=== PATIENT | male | born 1980 | race Caucasian/White ===

== ENCOUNTER 2018-08-26 22:35 | Emergency (ER) | payer OTHER ==
[2018-08-26] MEDS ORDERED: ONDANSETRON 4 MG (ODT) TAB ONE (23:35)
[2018-08-26] MEDS ORDERED: DIAZEPAM 5 MG TABLET ONE (23:38)
--- NOTE | 2018-08-27 00:23 | ER ---
Nurse's Notes [facility] Name: Van Banegas Age: 37 yrs Sex: Male : 1980 Arrival Date: 08/26/2018 Time: 22:37 Bed 3 Private MD: Diagnosis: Unspecified injury of head;Headache;Radiculopathy, cervical region Presentation: 08/26 22:50 Presenting complaint: states: pt was playing basketball and went for the ball bb tangling up with another player then falling and ended up hitting his head on the floor with a loss of consciousness. Care prior to arrival: None. Mechanism of Injury: Fall from playing basketball and colliding with another player. Trauma event details: Injury occurred in the [facility], Injury occurred: in a recreational area. Injury occurred: August 26, 2018. 22:50 Acuity: WALT 2 bb 22:50 Method Of Arrival: Ambulatory bb 22:55 Transition of care: patient was not received from another setting of care. Onset of bb symptoms was August 26, 2018. Risk Assessment: Do you want to hurt yourself or someone else? Patient reports no desire to harm self or others. Initial Sepsis Screen: Does the patient meet any 2 criteria? No. Patient's initial sepsis screen is negative. Does the patient have a suspected source of infection? No. Patient's initial sepsis screen is negative. Triage Assessment: 08/27 00:15 Pain: Complains of pain in head. mg2 Trauma Activation: Alert Physician: ED Physician; Name: Kate; Notified At: 22:50; Arrived At: 22:50 Physician: General Surgeon; Name: ; Notified At: 22:50; Arrived At: Physician: Radiology; Name: Jaime; Notified At: 22:50; Arrived At: 22:52 Physician: Respiratory; Name: ; Notified At: 22:50; Arrived At: Physician: Lab; Name: ; Notified At: 22:50; Arrived At: Historical: - Allergies: 08/26 22:56 No Known Allergies; bb - Home Meds: 22:56 None [Active]; bb - PMHx: 22:56 None; bb - PSHx: 22:56 ear surgery; bb - Immunization history: Last tetanus immunization: unknown. - Social history:: Smoking status: Patient/guardian denies using tobacco, Patient uses alcohol, occasionally. - Ebola Screening: : No symptoms or risks identified at this time. Screenin:51 Abuse screen: Denies threats or abuse. Denies injuries from another. Nutritional mg2 screening: No deficits noted. Tuberculosis screening: No symptoms or risk factors identified. Fall Risk Fall in past 12 months (25 points). Primary Survey: 22:56 NO uncontrolled hemorrhage observed. A: The patient is alert. Breathing/Chest: mg2 Respiratory pattern: regular, Respiratory effort: spontaneous, unlabored. Circulation: Skin color: pink. Disability Alert. Exposure/Environment: All clothing and personal items were removed. Forensic evidence collection is not deemed to be indicated at this time. Items placed in patient belonging bag. There is no evidence of uncontrolled external bleeding. No obvious injuries are noted at this time. 08/27 00:20 Reassessment Airway Airway Patent Breathing/Chest Respiratory pattern Regular mg2 Respiratory effort Spontaneous Unlabored. Secondary Survey: 08/26 22:56 HEENT: No deficits noted. Gastrointestinal: No deficits noted. : No deficits noted. mg2 Musculoskeletal: Circulation, motion, and sensation intact. Capillary refill < 3 seconds. Assessment: 22:52 Reassessment: patient sent to ct scan via stretcher. c-collar applied. trauma alert mg2 activated. 22:53 General: Appears in no apparent distress. comfortable, Behavior is crying. Neuro: Level mg2 of Consciousness is awake, alert, obeys commands, Oriented to person, place, time, situation. Neuro: Reports loss of consciousness. Cardiovascular: Capillary refill < 3 seconds Patient's skin is warm and dry. Respiratory: Airway is patent Respiratory effort is even, unlabored, Respiratory pattern is regular, symmetrical. GI: No signs and/or symptoms were reported involving the gastrointestinal system. : No signs and/or symptoms were reported regarding the genitourinary system. EENT: No signs and/or symptoms were reported regarding the EENT system. Derm: Skin is intact, is healthy with good turgor, Skin is pink, warm \T\ dry. normal. Musculoskeletal: Circulation, motion, and sensation intact. Capillary refill < 3 seconds. 08/27 00:17 Reassessment: Patient appears in no apparent distress at this time. Patient and/or mg2 family updated on plan of care and expected duration. Pain level reassessed. Patient is alert, oriented x 3, equal unlabored respirations, skin warm/dry/pink. 00:51 Reassessment: Patient states feeling better. mg2 Vital Signs: 08/26 22:50 BP 147 / 98; Pulse 86; Resp 16 S; Pulse Ox 96% on R/A; Weight 113.4 kg (R); Height 6 bb ft. 3 in. (190.50 cm) (R); Pain 7/10; 23:07 Temp 98.3(O); mg2 23:50 BP 137 / 87; Pulse 85; Resp 18; Pulse Ox 97% on R/A; tl2 08/27 00:50 BP 156 / 88; Pulse 97; Resp 18; Temp 98; Pulse Ox 100% on R/A; Pain 2/10; mg2 08/26 22:50 Body Mass Index 31.25 (113.40 kg, 190.50 cm) bb [place] Coma Score: 08/26 22:50 Eye Response: spontaneous(4). Verbal Response: oriented(5). Motor Response: obeys bb commands(6). Total: 15. 22:53 Eye Response: spontaneous(4). Verbal Response: oriented(5). Motor Response: obeys snw commands(6). Total: 15. 23:35 Eye Response: spontaneous(4). Verbal Response: oriented(5). Motor Response: obeys snw commands(6). Total: 15. 23:35 Eye Response: spontaneous(4). Verbal Response: oriented(5). Motor Response: obeys snw commands(6). Total: 15. 23:50 Eye Response: spontaneous(4). Verbal Response: oriented(5). Motor Response: obeys tl2 commands(6). Total: 15. Trauma Score (Adult): 22:50 Eye Response: spontaneous(1); Verbal Response: oriented(1); Motor Response: obeys bb commands(2); Systolic BP: > 89 mm Hg(4); Respiratory Rate: 10 to 29 per min(4); Aris Score: 15; Trauma Score: 12 23:50 Eye Response: spontaneous(1); Verbal Response: oriented(1); Motor Response: obeys tl2 commands(2); Systolic BP: > 89 mm Hg(4); Respiratory Rate: 10 to 29 per min(4); Aris Score: 15; Trauma Score: 12 08/27 00:50 Eye Response: spontaneous(1); Verbal Response: oriented(1); Motor Response: obeys mg2 commands(2); Systolic BP: > 89 mm Hg(4); Respiratory Rate: 10 to 29 per min(4); [place] Score: 15; Trauma Score: 12 ED Course: 08/26 22:37 Patient arrived in ED. am2 22:49 Micheal Lee, MICK is Primary Nurse. mg2 22:49 Marko Love MD is Attending Physician. gs 22:49 Tran Vanessa FNP-C is [facility]. snw 22:50 Patient maintains SpO2 saturation greater than 95% on room air. bb 22:52 Patient has correct armband on for positive identification. Pulse ox on. NIBP on. Door mg2 closed. Warm blanket given. 22:53 Triage completed. bb 22:56 Arm band placed on Patient placed in an exam room, on a stretcher, on pulse oximetry. bb Family accompanied patient. 22:57 No provider procedures requiring assistance completed. mg2 23:08 CT Head C Spine In Process Unspecified. EDMS 08/27 00:30 Thermoregulation: warm blanket given to patient. mg2 00:51 Patient did not have IV access during this emergency room visit. mg2 Administered Medications: 08/26 23:25 Drug: Valium 5 mg Route: PO; mg2 08/27 00:19 Follow up: Response: No adverse reaction; Marked relief of symptoms; Anxiety decreased mg2 08/26 23:25 Drug: Zofran 4 mg Route: PO; mg2 08/27 00:18 Follow up: Response: No adverse reaction; Marked relief of symptoms; Nausea is decreasedmg2 Intake: 08/26 22:50 PO: 0ml; Total: 0ml. bb Outcome: 08/27 00:22 Discharge ordered by . snw 00:51 Discharged to home ambulatory, with family. mg2 00:51 Condition: stable 00:51 Discharge instructions given to patient, family, Instructed on discharge instructions, follow up and referral plans. medication usage, Demonstrated understanding of instructions, follow-up care, medications, Prescriptions given X 2. 00:52 Patient's length of stay was not longer than 2 hours. mg2 00:52 Patient left the ED. mg2 Signatures: Dispatcher [employer] EDMS Tran Vanessa, AQUACULTURE PROGRAM DIRECTOR-C AQUACULTURE PROGRAM DIRECTOR-Csnw Josiane Vickers, RN RN bb Urvashi Paulino RN RN tl2 Catheirne Cheng am2 Marko Love MD MD Micheal Lee RN RN mg2
--- NOTE | 2018-08-27 00:24 | EDPHYS ---
Physician Documentation [facility] Name: Van Banegas Age: 37 yrs Sex: Male : 1980 Arrival Date: 08/26/2018 Time: 22:37 Bed 3 Private MD: ED Physician Marko Love HPI: 08/26 22:53 This 37 yrs old Male presents to ER via Unassigned with complaints of Head snw Injury With LOC-Adult. 22:53 The patient or guardian reports injury, tenderness. The complaints affect the occiput. snw Context of injury: The problem was sustained at a sports field or court, resulted from a fall, while running. Onset: The symptoms/episode began/occurred suddenly, just prior to arrival. Associated signs and symptoms: Loss of consciousness: This patient experience a loss of consciousness, that was brief, for 30 second(s), Pertinent positives: loss of conciousness, headache, neck pain, nausea. Severity of symptoms: At their worst the symptoms were moderate. The patient has not experienced similar symptoms in the past. The patient has not recently seen a physician. Historical: - Allergies: 22:56 No Known Allergies; bb - Home Meds: 22:56 None [Active]; bb - PMHx: 22:56 None; bb - PSHx: 22:56 ear surgery; bb - Immunization history: Last tetanus immunization: unknown. - Social history:: Smoking status: Patient/guardian denies using tobacco, Patient uses alcohol, occasionally. - Ebola Screening: : No symptoms or risks identified at this time. ROS: 22:52 Eyes: Negative for injury, pain, redness, and discharge, ENT: Negative for injury, snw pain, and discharge, Neck: Negative for injury, pain, and swelling, Cardiovascular: Negative for chest pain, palpitations, and edema, Respiratory: Negative for shortness of breath, cough, wheezing, and pleuritic chest pain. 22:52 Back: Negative for injury and pain, : Negative for injury, bleeding, discharge, and swelling, MS/Extremity: Negative for injury and deformity, Skin: Negative for injury, rash, and discoloration. 22:52 Constitutional: Positive for tightness through neck and shoulders. 22:52 Abdomen/GI: Positive for nausea. 22:52 Neuro: Positive for headache, loss of consciousness, of the occiput. Exam: 22:49 Constitutional: This is a well developed, well nourished patient who is awake, alert, snw and in no acute distress. 22:49 ENT: Nares patent. No nasal discharge, no septal abnormalities noted. Tympanic membranes are normal and external auditory canals are clear. Oropharynx with no redness, swelling, or masses, exudates, or evidence of obstruction, uvula midline. Mucous membranes moist. Neck: Trachea midline, no thyromegaly or masses palpated, and no cervical lymphadenopathy. Supple, full range of motion without nuchal rigidity, or vertebral point tenderness. No Meningismus. Chest/axilla: Normal chest wall appearance and motion. Nontender with no deformity. No lesions are appreciated. Cardiovascular: Regular rate and rhythm with a normal S1 and S2. No gallops, murmurs, or rubs. Normal PMI, no JVD. No pulse deficits. Respiratory: Lungs have equal breath sounds bilaterally, clear to auscultation and percussion. No rales, rhonchi or wheezes noted. No increased work of breathing, no retractions or nasal flaring. Abdomen/GI: Soft, non-tender, with normal bowel sounds. No distension or tympany. No guarding or rebound. No evidence of tenderness throughout. Back: No spinal tenderness. No costovertebral tenderness. Full range of motion. Skin: Warm, dry with normal turgor. Normal color with no rashes, no lesions, and no evidence of cellulitis. 22:49 Constitutional: The patient appears awake, anxious, listless. 22:49 Head/face: Noted is erythema, that is moderate, of the occiput. 22:49 Eyes: Periorbital structures: appear normal, Pupils: constricted, bilaterally, right pupil is approximately 2 mm(s), left pupil is approximately 2 mm(s), Extraocular movements: no acute changes, Lids and lashes: appear normal. 22:49 Musculoskeletal/extremity: Extremities: grossly normal except: tightness to bilateral shoulders. 22:49 Neuro: Orientation: appropriate for stated age, Mentation: able to follow commands, emotional, Memory: appropriate for stated age, Motor: moves all fours, Deep tendon reflexes are normal, seizure activity, is not displayed by the patient. Vital Signs: 22:50 BP 147 / 98; Pulse 86; Resp 16 S; Pulse Ox 96% on R/A; Weight 113.4 kg (R); Height 6 bb ft. 3 in. (190.50 cm) (R); Pain 7/10; 23:07 Temp 98.3(O); mg2 23:50 BP 137 / 87; Pulse 85; Resp 18; Pulse Ox 97% on R/A; tl2 08/27 00:50 BP 156 / 88; Pulse 97; Resp 18; Temp 98; Pulse Ox 100% on R/A; Pain 2/10; mg2 08/26 22:50 Body Mass Index 31.25 (113.40 kg, 190.50 cm) bb Aris Coma Score: 08/26 22:50 Eye Response: spontaneous(4). Verbal Response: oriented(5). Motor Response: obeys bb commands(6). Total: 15. 22:53 Eye Response: spontaneous(4). Verbal Response: oriented(5). Motor Response: obeys snw commands(6). Total: 15. 23:35 Eye Response: spontaneous(4). Verbal Response: oriented(5). Motor Response: obeys snw commands(6). Total: 15. 23:35 Eye Response: spontaneous(4). Verbal Response: oriented(5). Motor Response: obeys snw commands(6). Total: 15. 23:50 Eye Response: spontaneous(4). Verbal Response: oriented(5). Motor Response: obeys tl2 commands(6). Total: 15. Trauma Score (Adult): 22:50 Eye Response: spontaneous(1); Verbal Response: oriented(1); Motor Response: obeys bb commands(2); Systolic BP: > 89 mm Hg(4); Respiratory Rate: 10 to 29 per min(4); Aris Score: 15; Trauma Score: 12 23:50 Eye Response: spontaneous(1); Verbal Response: oriented(1); Motor Response: obeys tl2 commands(2); Systolic BP: > 89 mm Hg(4); Respiratory Rate: 10 to 29 per min(4); [place] Score: 15; Trauma Score: 12 08/27 00:50 Eye Response: spontaneous(1); Verbal Response: oriented(1); Motor Response: obeys mg2 commands(2); Systolic BP: > 89 mm Hg(4); Respiratory Rate: 10 to 29 per min(4); Aris Score: 15; Trauma Score: 12 MDM: 08/26 22:55 Patient medically screened. snw 23:35 Data reviewed: vital signs, nurses notes, radiologic studies. Data interpreted: Pulse snw oximetry: on room air is 96 %. Interpretation: normal. Counseling: I had a detailed discussion with the patient and/or guardian regarding: the historical points, exam findings, and any diagnostic results supporting the discharge/admit diagnosis, the presence of at least one elevated blood pressure reading (>120/80) during this emergency department visit, radiology results, the need for outpatient follow up, for definitive care. Special discussion: I have referred the patient to see his PCP for further evaluation of high blood pressure. Based on the patient's history, exam and DX evaluation, there is no indication for emergent intervention or inpatient TX. It is understood by the patient/guardian that if the SXs persist or worsen they need to return immediately for re-evaluation. ED course: will remove C-collar placed on arrival. CT head and c-spine negative. 08/26 22:39 Order name: CT Head C Spine snw Administered Medications: 23:25 Drug: Valium 5 mg Route: PO; mg2 08/27 00:19 Follow up: Response: No adverse reaction; Marked relief of symptoms; Anxiety decreased mg2 08/26 23:25 Drug: Zofran 4 mg Route: PO; mg2 08/27 00:18 Follow up: Response: No adverse reaction; Marked relief of symptoms; Nausea is decreasedmg2 Disposition: 01:44 Co-signature as Attending Physician, Marko Love MD. Disposition: 08/27/18 00:22 Discharged to Home. Impression: Unspecified injury of head, Headache, Radiculopathy, cervical region. - Condition is Stable. - Discharge Instructions: Cervical Radiculopathy, Head Injury, Adult, Post-Concussion Syndrome, Cervical Sprain, Cryotherapy. - Prescriptions for Diclofenac Sodium 75 mg Oral Tablet Sustained Release - take 1 tablet by ORAL route 2 times per day; 30 tablet. orphenadrine citrate 100 mg Oral Tablet Sustained Release - take 1 tablet by ORAL route 2 times per day As needed; 20 tablet. - Work release form, Medication Reconciliation Form, Thank You Letter, Antibiotic Education, Prescription Opioid Use form. - Follow up: Private Physician; When: 1 - 2 days; Reason: Recheck today's complaints, Continuance of care, Re-evaluation by your physician. Follow up: Emergency Department; When: As needed; Reason: Worsening of condition. Signatures: Dispatcher [employer] EDMS Tran Vanessa, LUIS-C WASHER AND CAPPER MACHINE OPERATOR-Csnw Josiane Vickers RN RN bb Marko Love MD MD gs [place], Michele, RN RN mg2 Corrections: (The following items were deleted from the chart) 00:52 00:22 08/27/2018 00:22 Discharged to Home. Impression: Unspecified injury of head; mg2 Headache; Radiculopathy, cervical region. Condition is Stable. Forms are Medication Reconciliation Form, Thank You Letter, Antibiotic Education, Prescription Opioid Use. Follow up: Private Physician; When: 1 - 2 days; Reason: Recheck today's complaints, Continuance of care, Re-evaluation by your physician. Follow up: Emergency Department; When: As needed; Reason: Worsening of condition. snw
--- NOTE | 2018-08-27 09:07 | RAD REPORT ---
EXAM DESCRIPTION: CT - Head C Spine Mpr Wo Con - 08/27/2018 2:52 am CLINICAL HISTORY: Trauma/injury. COMPARISON: None available TECHNIQUE: Axial CT of the head obtained from the skull apex to the skull base without contrast. Axi al CT images of the cervical spine obtained from the skull base through the thoracic inlet. Sagittal and coronal reformatted images available. FINDINGS: CT head: No acute intracranial hemorrhage identified. No mass, mass effect, shift of the midline, abnormal ext ra-axial fluid collection or CT evidence of acute ischemic change identified. The ventricular system is unremarkable. No acute abnormalities of the supratentorial white matter, basal ganglia, cerebell um, or brainstem. The visualized paranasal sinuses and the mastoids are clear. No skull fracture identified. Visualized orbits and globes are unremarkable. Cervical CT: Straightening of the cervical lordosis may be secondary to patient positioning. The atlantoaxial, a tlantodental, and occipitoatlantal intervals are preserved. No acute fracture identified. Vertebral body height preserved. Prevertebral soft tissues are unremarkable. Intervertebral disc height preserved. Mild endplate spondylosis and facet arthropathy. Visualized skull base is intact. No fracture of the visualized facial bones. Visualized mastoid air c ells and paranasal sinuses are well aerated. Visualized thyroid is unremarkable. No cervical lymphadenopathy. No pneumothorax in the visualized lung apices. DLP: 1287.6 mGy-cm IMPRESSION: 1. No acute intracranial abnormality. 2. No acute fracture or subluxation of the cervical spine. Mild multilevel degenerative change of the cervical spine. This exam was performed according to our d epartmental dose-optimization program, which includes automated exposure control, adjustment of the m A and/or kV according to patient size and/or use of iterative reconstruction technique. Electronically signed by: Félix Rich 08/26/2018 11:20 PM CDT Due to temporary technical issues with the PACS/Fluency reporting system, reports are being signed by the in house radiologist as a courtesy to ensure prompt reporting. The interpreting radiologist is f ully responsible for the content of the report.
== END 2018-08-27 00:52 | disposition home or self-care (01) ==
LOC: ER 22:35
DX: S09.90XA Unspecified injury of head, initial encounter (principal); M54.12 Radiculopathy, cervical region; W19.XXXA Unspecified fall, initial encounter; Y93.02 Activity, running; Y92.328 Other athletic field as the place of occurrence of the external cause
CPT/HCPCS: 70450; 72125; 99284